=== PATIENT | male | born 1975 | race American Indian/Alaskan Native ===

== ENCOUNTER 2017-01-09 23:54 | Emergency (ER) | payer SELFPAY ==
[2017-01-10] MEDS ORDERED: MOTRIN PO ONE (05:27)
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
[2017-01-10 06:04] VITALS: BP 148/92
== END 2017-01-10 05:50 | disposition home or self-care (01) ==
LOC: ED 23:54
DX: M79.601 Pain in right arm (principal); R51 Headache; V49.49XA Driver injured in collision with other motor vehicles in traffic accident, initial encounter; Y93.9 Activity, unspecified; Y92.9 Unspecified place or not applicable; Y99.9 Unspecified external cause status
CPT/HCPCS: 99282

== ENCOUNTER 2020-08-22 14:04 | Emergency (ER) | payer SELFPAY ==
[2020-08-22 14:56] VITALS: BP 139/73
--- NOTE | 2020-08-22 15:04 | Event Note ---
ED Screening Note Date of service: 08/22/20 Time: 14:59 ED Screening Note: 45 y/o male presents to the emergency room for 1 week history of left abdominal pain worse with bending and twisting. Patient states he does not have pain today but had pain at 3 out of 10. He reports that the pain is intermittent and can be sharp. He denies any nausea vomiting no diarrhea no constipation denies any dysuria hematuria no fever no chills. Patient reports no past medical history takes no medications on a daily basis. This initial assessment/diagnostic orders/clinical plan/treatment(s) is/are subject to change based on patients health status, clinical progression and re- assessment by fellow clinical providers in the ED. Further treatment and workup at subsequent clinical providers discretion. Patient/guardian urged not to elope from the ED as their condition may be serious if not clinically assessed and managed. Initial orders include:
== END 2020-08-22 15:20 | disposition left against medical advice (07) ==
LOC: ED 14:04
DX: R10.9 Unspecified abdominal pain (principal); Z53.21 Procedure and treatment not carried out due to patient leaving prior to being seen by health care provider